=== PATIENT | male | born 1965 | race Caucasian/White ===

== ENCOUNTER 2020-01-15 07:03 | Day surgery (SDC) | payer BC ==
[2020-01-15] VITALS (9 sets, daily range): BP systolic 105–144; BP diastolic 68–91
[~2020-01-15] VITALS: Ht 180.3 cm; Wt 77.1 kg
[~2020-01-15 07:03] MED LIST: NKM
[2020-01-15] MEDS ORDERED: Atropine Inj 1mg/10ml Syr IV PRN (07:15)
[2020-01-15] MEDS ORDERED: DiphenhydrAMINE 50mg/ml Inj IVP PRN (07:15)
[2020-01-15] MEDS ORDERED: Midazolam 2mg/2ml Inj IVP PRN (07:15)
[2020-01-15] MEDS ORDERED: LR 1000ml 1,000 ML IVLG SCH ×2 (07:15→08:00)
[2020-01-15] MEDS ORDERED: fentaNYL 100 mcg/2 mL IV PRN (07:15)
--- NOTE | 2020-01-15 07:26 | Anethesia Preoperative Eval ---
Anesthesia Pre-op PMH/ROS General Date of Evaluation: Jan 15, 2020 Time of Evaluation: 07:20 Anesthesiologist: coral ASA Score: ASA 2 Mallampati Score Class I : Soft palate, uvula, fauces, pillars visible Class II: Soft palate, uvula, fauces visible Class III: Soft palate, base of uvula visible Class IV: Only hard plate visible Mallampati Classification: Class I Surgeon: chuy Diagnosis: gerd Surgical Procedure: egd/colonoscopy Anesthesia History: none Social History: current smoker Family History: no anesthesia problems Allergies: Coded Allergies: ASPIRIN (Verified Allergy, Unknown, 08/31/14) PENICILLINS (Verified Allergy, Unknown, 08/31/14) Medications: see eMAR Patient NPO?: Yes Past Medical History Pulmonary: Reports: other - pneumonia, HEENT: Reports: other - decreased visual acuity, ear infection, tonsillectomy Hematology/Immune: Reports: anemia PSxH Narrative: tonsillectomy Anesthesia Pre-op Phys. Exam Physician Exam Last Vital Signs Date Time Temp Pulse Resp B/P (MAP) Pulse Ox O2 Delivery O2 Flow Rate FiO2 01/15/20 07:46 Room Air 01/15/20 07:43 97.7 48 18 134/74 98 Constitutional: NAD Neurologic: CN 2-12 intact Cardiovascular: other - bradycardia Respiratory: CTA Gastrointestinal: S/NT/ND Airway Exam Mallampati Score: Class II MO: limited Neck: flexible TMD: 2fb ROM: limited Anesthesia Pre-op A/P Labs covid-19 negative Studies Pre-op Studies: EKG - sinus bradycardia Risk Assessment & Plan Assessment: asa2 Plan: mac Status Change Before Surgery: No Pre-Antibiotics Drug: Meli Xavier MD Jan 15, 2020 07:26
[2020-01-15] MEDS ORDERED: LR 1000ml ONE (08:30)
[2020-01-15] MEDS ORDERED: Lidocaine 1% MPF 10mg/ml 5ml ONE (08:30)
[2020-01-15] MEDS ORDERED: Atropine Sulfate 0.4mg/ml inj ONE (08:30)
--- NOTE | 2020-01-15 08:48 | Pre-Procedure Note/Attestation ---
Pre-Procedure Note/Attestation Complete Prior to Procedure Planned Procedure: not applicable Procedure Narrative: esophagogastroduodenoscopy and colonoscopy Indications for Procedure Pre-Operative Diagnosis: gerd, screening colon Attestation I attest that I discussed the nature of the procedure; its benefits; risks and complications; and alternatives (and the risks and benefits of such alternatives ), prior to the procedure, with the patient (or the patient's legal enrollment eligibility representative). I attest that, if there was a reasonable possibility of needing a blood transfusion, the patient (or the patient's legal enrollment eligibility representative) was given the [facility] standardized written summary, pursuant to the [place] Blood Safety Act ([place] Health and Safety Code # 1645, as amended). I attest that I re-evaluated the patient just prior to the surgery and that there has been no change in the patient's H&P, except as documented below: Glenn Mata MD Jan 15, 2020 08:48
--- NOTE | 2020-01-15 08:49 | Short Stay Surgery H&P ---
History of Present Illness History of Present Illness Chief Complaint screening colon GERD HPI Mathieu Mitchell is a 54 year old male who was admitted on for GERD Patient History Allergies: Coded Allergies: ASPIRIN (Verified Allergy, Unknown, 08/31/14) PENICILLINS (Verified Allergy, Unknown, 08/31/14) PAST MEDICAL HISTORY: (1) PNA (pneumonia) Medication History Scheduled No Known Medications* (NKM - No Known Medications*), 0 ., (Reported) Review of Systems Cardiovascular: Reports: no symptoms Respiratory: Reports: no symptoms Skeletal: Reports: no symptoms Gastrointestinal: Reports: gastro esophageal reflux disease Genitourinary: Reports: no symptoms Neurologic: Reports: no symptoms Endocrine: Reports: no symptoms Hematologic: Reports: anemia Physical Exam Vital Signs Last Vital Signs Date Time Temp Pulse Resp B/P (MAP) Pulse Ox O2 Delivery O2 Flow Rate FiO2 01/15/20 07:46 Room Air 01/15/20 07:43 97.7 48 18 134/74 98 Skin: normal HENT: normal Heart: normal Lungs: normal Abdomen: normal Extremities: normal Plan Plan of Care esophagogastroduodenoscopy, colonoscopy, Attestation Are the patient's medical conditions optimized for surgery? Attestation Response: yes Glenn Mata MD Jan 15, 2020 08:49
--- NOTE | 2020-01-15 09:17 | Endoscopy Procedure Note ---
Endoscopy Procedure Note General Indication for Procedure: screening colon, GERD Procedures Performed: EGD, colonoscopy Operative Findings/Diagnosis: 3 polyps Specimen: yes Pt Tolerated Procedure Well: Yes Estimated Blood Loss: none Anesthesia Anesthesiologist: alysha Anesthesia: MAC Inserted Devices Implant(s) used?: No Quality Quality of Bowel Preparation: Good Did scope reach the cecum?: Yes Was there any complications?: No GI Core Measures 50 yrs or older w/o bx or poly: No 10yrs. F/U recommended: Yes If not recommended, why?: Above average risk 18 years or older w/prev. colo: Yes <3yrs. since last colonoscopy: No Glenn Mata MD Jan 15, 2020 09:17
--- NOTE | 2020-01-15 09:32 | Immediate Post-Op Evaluation ---
Immediate Post-Op Evalulation Immediate Post-Op Evalulation Procedure: egd/colonoscopy w/bx Date of Evaluation: Jan 15, 2020 Time of Evaluation: 09:32 IV Fluids: 550ml lr Blood Products: none Estimated Blood Loss: negligible Blood Pressure Systolic: 105 Blood Pressure Diastolic: 68 Pulse Rate: 48 Respiratory Rate: 18 O2 Sat by Pulse Oximetry: 100 Temperature (Fahrenheit): 97.0 Pain Score (1-10): 0 Nausea: No Vomiting: No Complications none Patient Status: awake, reacts, patent Hydration Status: adequate Drug: Meli Xavier MD Jan 15, 2020 09:32
--- NOTE | 2020-01-15 09:37 | 48 Hour Post Anesthesia Eval ---
Post Anesthesia Evaluation Procedure: egd/colonoscopy w/bx Date of Evaluation: Jan 15, 2020 Time of Evaluation: 09:34 Blood Pressure Systolic: 115 0: 72 Pulse Rate: 48 Respiratory Rate: 18 Temperature (Fahrenheit): 97.0 O2 Sat by Pulse Oximetry: 100 Airway: patent Nausea: No Vomiting: No Pain Intensity: 0 Hydration Status: adequate Cardiopulmonary Status: stable Mental Status/LOC: patient returned to baseline Post-Anesthesia Complications: none Follow-up care needed: N/A Meli Barros MD Jan 15, 2020 09:37
--- NOTE | 2020-01-15 09:45 | Procedure Note ---
DATE OF PROCEDURE: 01/15/2020 SURGEON: Glenn Mata MD. PROCEDURE: Upper endoscopy with biopsy and colonoscopy with biopsy and snare polypectomy. ANESTHESIA: Per Dr. Workman. INSTRUMENT: Olympus adult flexible upper endoscope and colonoscope. INDICATION: Screening colonoscopy evaluation and chronic GERD. REASON FOR PROCEDURE: The procedure, risks, benefits, and possible consequences, including hemorrhage, aspiration, perforation and infection, and alternative treatments, were explained to the patient/legal guardian by Dr. Glenn Mata and the patient/legal guardian understood and accepted these risks. PROCEDURE IN DETAIL: After informed consent was obtained and the patient was adequately sedated, Olympus upper endoscope was advanced from mouth into the second portion of the duodenum and retroflexion was performed in the stomach. The patient has diffuse gastritis. Random biopsy from antrum and body was obtained to rule out H. pylori infection. The patient is having a small inlet patch seen in the upper esophagus. At this time, the upper endoscope was retrieved and the patient was turned over for colonoscopy. First, rectal exam was performed, which was positive for internal hemorrhoids. Then, the scope was advanced from rectum into the cecum documented by appendix orifice, ileocecal valve, and right upper quadrant palpation. Quality of prep was very good. The patient had one diminutive polyp in transverse colon, which was biopsied, removed with the cold biopsy forceps technique. The patient had two polyps in the rectum, one of them was 7 mm sessile, removed with a hot snare polypectomy technique. The other one was a small polyp removed with cold biopsy forceps technique. Retroflexion in the rectum showed evidence of internal hemorrhoids. The patient also had evidence of diverticulosis mainly in the ascending colon and sigmoid colon. The patient tolerated the procedure very well without any complication. SUMMARY OF FINDINGS: 1. Gastritis, status post biopsy. 2. Inlet patch. 3. Three colonic polyps removed. See above for details. 4. Internal hemorrhoids. 5. Diverticulosis in the ascending and sigmoid colon. RECOMMENDATIONS: Follow pathology and treat accordingly. Given three polyps, we recommend repeat colonoscopy in three years. Glenn Mata M.D. DR: ROXANN JOB#: [id number] CC:
== END 2020-01-15 10:35 | disposition home or self-care (01) ==
LOC: GAS 07:03
DX: Z12.11 Encounter for screening for malignant neoplasm of colon (principal); K21.9 Gastro-esophageal reflux disease without esophagitis; K29.70 Gastritis, unspecified, without bleeding; K63.5 Polyp of colon; K64.8 Other hemorrhoids; K57.30 Diverticulosis of large intestine without perforation or abscess without bleeding; F17.200 Nicotine dependence, unspecified, uncomplicated; Z88.0 Allergy status to penicillin; Z88.6 Allergy status to analgesic agent
CPT/HCPCS: 43239; 45380; 45385; 94003; J0461; J2704; J7120; 94150